=== PATIENT | male | born 1945 | race Two or more races ===

== ENCOUNTER 2023-05-19 03:23 | Emergency (ER) | payer MEDICARE ==
[~2023-05-19] VITALS: Ht 172.7 cm; Wt 67.0 kg
[2023-05-19 03:26] VITALS: TEMP 98.8
[2023-05-19 03:50] LABS: BILIRUBIN,URINE SMALL (Neg); CLARITY,URINE SLIGHTLY CLOUDY (Clear); COLOR,URINE AMBER (Yellow); GLUCOSE, URINE NEGATIVE (Neg); KETONES,URINE NEGATIVE (Neg); LEUKOCYTE ESTERASE ,URINE NEGATIVE (Neg); NITRITES, URINE POSITIVE (Neg); OCCULT BLOOD,URINE NEGATIVE (Neg); PH,URINE 5.5 (4.8-8.0); PROTEIN,URINE 30 mg/dl (Neg)
[2023-05-19 03:51] LABS: BASOPHILS % (AUTO) 0.2 % (0-1); EOSINOPHILS % (AUTO) 0 % (0-6); HEMATOCRIT 51.7 % (42.0-52.0); HEMOGLOBIN 17.5 g/dl (14.0-17.9); LYMPHOCYTES # (AUTO) 1.4 X10'3 (1.1-4.8); LYMPHOCYTES % (AUTO) 16.3 % (21-51); MEAN CORPUSCULAR HEMOGLOBIN 31.8 PG (27.0-31.0); MEAN CORPUSCULAR HGB CONC 33.9 g/dL (33.0-36.5); MEAN CORPUSCULAR VOLUME 93.8 FL (78-98); MEAN PLATELET VOLUME 9.3 FL (7.4-10.4); MONOCYTES # (AUTO) 0.6 X10'3 (0-0.9); MONOCYTES % (AUTO) 7.3 % (2-12); NEUTROPHILS # (AUTO) 6.6 X10'3 (1.8-7.7); NEUTROPHILS % (AUTO) 76.2 % (42-75); PLATELET COUNT 265 X10'3 (140-440); RED BLOOD COUNT 5.51 X10'6 (4.70-6.10); RED CELL DISTRIBUTION WIDTH 13.5 % (11.5-14.5); WHITE BLOOD COUNT 8.7 X10'3 (4.5-11.0)
[2023-05-19 04:03] LABS: UA COLLECTION TYPE CLN CATCH MIDSTREAM
[2023-05-19 04:06] LABS: HYALINE CASTS >30 /LPF (NEGATIVE); SQUAMOUS EPITHELIAL CELL,UR NONE SEEN /LPF (FEW)
[2023-05-19 04:07] LABS: BACTERIA,URINE 3+ /HPF (Neg); RBC,URINE NONE SEEN /HPF (0-2)
[2023-05-19] MEDS ORDERED: normal saline 1000ml 1,000 ML IV ONE (04:10)
[2023-05-19] MEDS ORDERED: ondansetron/PF 4mg/2ml inj IV ONE (04:10)
[2023-05-19] MEDS ORDERED: CefTRIAXone/D5W-Rocephin 1gm 50 ML IV ONE (04:15)
[2023-05-19 04:36] LABS: ALANINE AMINOTRANSFERASE 36 U/L (12-78); ALBUMIN 4.3 G/DL (3.4-5.0); ALKALINE PHOSPHATASE 85 IU/L (46-116); ANION GAP 9 (8-16); ASPARTATE AMINO TRANSFERASE 38 U/L (10-37); BILIRUBIN,TOTAL 3.8 MG/DL (0.1-1.0); BLOOD UREA NITROGEN 57 MG/DL (7-18); BUN/CREATININE RATIO 41.3 (10.0-20.0); CHLORIDE 90 MMOL/L (99-107); CREATININE 1.38 MG/DL (0.60-1.10); GLUCOSE 126 MG/DL (70-104); POTASSIUM 3.9 MMOL/L (3.5-5.1); SODIUM 134 MMOL/L (135-145); TOTAL CARBON DIOXIDE 35.3 MMOL/L (24-32); eCRCL 42 ML/MIN; eGFR 50 ML/MIN
[2023-05-19 04:39] LABS: LIPASE 51 U/L (16-77)
[2023-05-19] MEDS ORDERED: CEPH-585 PO (05:06)
[2023-05-19 05:19] LABS: ALBUMIN/GLOBULIN RATIO 1.2 (1.1-1.5); TOTAL PROTEIN 7.8 G/DL (6.4-8.2)
[2023-05-19] MEDS ORDERED: ONDA4TAB12 PO (05:21)
[2023-05-19 05:36] VITALS: BP 124/79; PULSE 78; RESP 13; O2SAT 94
== END 2023-05-19 05:39 | disposition home or self-care (01) ==
LOC: ER 03:24
DX: N39.0 Urinary tract infection, site not specified (principal); N30.81 Other cystitis with hematuria
CPT/HCPCS: 36415; 80053; 81001; 83690; 84484; 85025; 87088; 93005; 96365; 96375; 99284; J0696; J2405; J7030